=== PATIENT | male | born 1945 | race Caucasian/White ===

== ENCOUNTER 2022-03-07 13:54 | Emergency (ER) | payer BC ==
[~2022-03-07] VITALS: Ht 165.1 cm; Wt 72.6 kg
[2022-03-07 13:59] VITALS: BP_SYST 151
--- NOTE | 2022-03-07 14:00 | NUR ---
Patient triaged and placed in waiting room. VSS and patient appears in no acute distress at this time. Accompanied by FAMILY, awaiting available bed, and MD notified of need for MSE.
--- NOTE | 2022-03-07 14:05 | NUR ---
PT BIB FAMILY REF'D FROM [facility], WORSENING SOB, FATIGUE, LOSS OF APPETITE, CONFUSION, BLE EDEMA. PT HAS BEEN LIVING ALONE AND FAMILY HAS BEEN CONCERNED ABOUT HIM BEING ABLE TO TAKE CARE OF HIMSELF. FAMILY SAYS HE HAS BEEN SLEEPING MORE THAN NORMAL. PT ALSO HAS BILAT EYE REDNESS AND DISCHARGE. PER FAMILY PT HAS NOT BEEN ABLE TO WALK SINCE THURSDAY SINCE WEAKNESS BUT IS AOX3, VSS ON ARRIVAL
--- NOTE | 2022-03-07 15:34 | NUR ---
ER DR. MOYER EXAMINING PT IN TRIAGE
[2022-03-07 16:13] LABS: BASOPHILS # (AUTO) 0.1 K/uL (0.0-0.2); BASOPHILS % (AUTO) 0.9 % (0.0-2.0); EOSINOPHILS # (AUTO) 0.2 K/uL (0.0-0.4); EOSINOPHILS % (AUTO) 1.5 % (0.0-4.0); HEMATOCRIT 34.1 % (36-54); HEMOGLOBIN 10.5 g/dL (14.0-18.0); LYMPHOCYTES # (AUTO) 2.4 K/uL (1.0-5.5); LYMPHOCYTES % (AUTO) 18.5 % (20.5-51.5); MEAN CORPUSCULAR HEMOGLOBIN 23 pg (27-31); MEAN CORPUSCULAR HGB CONC 31 % (32-36); MEAN CORPUSCULAR VOLUME 75 fL (79.0-98.0); MONOCYTES % (AUTO) 8.2 % (1.7-9.3); NEUTROPHILS # (AUTO) 9.1 K/uL (1.8-7.7); NEUTROPHILS % (AUTO) 70.9 % (40.0-70.0); PLATELET COUNT (AUTO) 514 K/uL (130-430); RED BLOOD CELL COUNT(AUTO) 4.52 MIL/uL (4.2-6.2); RED CELL DISTRIBUTION WIDTH 20.5 % (9.0-15.0); WHITE BLOOD COUNT (AUTO) 12.8 K/uL (4.8-10.8)
--- NOTE | 2022-03-07 16:14 | NUR ---
COVID AND FLU SWAB COLLECTED
[2022-03-07 16:24] LABS: ANION GAP 11 (5-15); CALCIUM 9.9 mg/dL (8.4-11.0); CHLORIDE 97 mmol/L (98-107); CREATININE 1.07 mg/dL (0.55-1.30); GLUCOSE 292 mg/dL (70-99); UREA NITROGEN, BLOOD 22 mg/dL (8-21)
[2022-03-07 16:27] LABS: PROTHROMBIN TIME 10.4 SECS (9.5-12.5)
[2022-03-07 16:31] LABS: ALANINE AMINOTRANSFERASE 16 U/L (12-78); ALBUMIN 3.5 g/dL (3.4-4.8); ASPARTATE AMINOTRANSFERASE 16 U/L (10-37); TOTAL BILIRUBIN 0.4 mg/dL (0.0-1.0)
[2022-03-07] MEDS ORDERED: PRED20TA PO (18:39)
[2022-03-07] MEDS ORDERED: ZIT250 PO (18:39)
[2022-03-07 18:59] VITALS: BP_SYST 151
--- NOTE | 2022-03-07 18:59 | NUR ---
Patient given written and verbal discharge instructions and verbalizes understanding. ER MD discussed with patient the results and treatment provided. Patient in stable condition. ID arm band removed. Rx of ZITHROMYCIN given. Patient educated on pain management and to follow up with PMD. Opportunity for questions provided and answered. Medication side effect fact sheet provided.
== END 2022-03-07 18:59 | disposition home or self-care (01) ==
LOC: SED 13:54
DX: J44.1 Chronic obstructive pulmonary disease with (acute) exacerbation (principal); R07.89 Other chest pain; R05.9 Cough, unspecified; R06.00 Dyspnea, unspecified; Z88.8 Allergy status to other drugs, medicaments and biological substances; Z79.899 Other long term (current) drug therapy; Z20.822 Contact with and (suspected) exposure to COVID-19
CPT/HCPCS: 36415; 36600; 71045; 80053; 82550; 82803-TC; 83605; 83880; 84484; 85025; 85610-TC; 85730-TC; 93005; 99285

== ENCOUNTER 2022-04-09 13:26 | Inpatient (IN) | payer BC ==
[~2022-04-09] VITALS: Ht 160 cm; Wt 72.3 kg
[~2022-04-09 13:26] MED LIST: PRED20TA PO; ZIT250 PO
[2022-04-09 13:30] VITALS: BP_SYST 154
[2022-04-09 15:52] LABS: BASOPHILS # (AUTO) 0.1 K/uL (0.0-0.2); EOSINOPHILS # (AUTO) 0.5 K/uL (0.0-0.4); EOSINOPHILS % (AUTO) 3.6 % (0.0-4.0); HEMOGLOBIN 9.8 g/dL (14.0-18.0); LYMPHOCYTES # (AUTO) 2.1 K/uL (1.0-5.5); LYMPHOCYTES % (AUTO) 16.9 % (20.5-51.5); MEAN CORPUSCULAR HEMOGLOBIN 22 pg (27-31); MEAN CORPUSCULAR HGB CONC 31 % (32-36); MEAN CORPUSCULAR VOLUME 71 fL (79.0-98.0); MONOCYTES # (AUTO) 1.2 K/uL (0.0-1.0); NEUTROPHILS # (AUTO) 8.5 K/uL (1.8-7.7); NEUTROPHILS % (AUTO) 68.5 % (40.0-70.0); PLATELET COUNT (AUTO) 434 K/uL (130-430); RED BLOOD CELL COUNT(AUTO) 4.53 MIL/uL (4.2-6.2); RED CELL DISTRIBUTION WIDTH 21.5 % (9.0-15.0); WHITE BLOOD COUNT (AUTO) 12.5 K/uL (4.8-10.8)
[2022-04-09 16:04] LABS: ANION GAP 15 (5-15); CALCIUM 9.7 mg/dL (8.4-11.0); CHLORIDE 98 mmol/L (98-107); CREATININE 1.05 mg/dL (0.55-1.30); GLUCOSE 277 mg/dL (70-99); UREA NITROGEN, BLOOD 16 mg/dL (8-21)
[2022-04-09 16:05] LABS: PROTHROMBIN TIME 10.6 SECS (9.5-12.5)
[2022-04-09 16:20] LABS: ALANINE AMINOTRANSFERASE 8 U/L (12-78); ALBUMIN 3.6 g/dL (3.4-4.8); ASPARTATE AMINOTRANSFERASE 18 U/L (10-37); FREE T4 (FREE THYROXINE) 1.3 ng/dL (0.6-1.6); THYROID STIMULATING HORMONE 2.92 uIu/mL (0.34-4.82); TOTAL BILIRUBIN 0.4 mg/dL (0.0-1.0)
[2022-04-09 16:29] LABS: ACETONE, SERUM NEGATIVE (NEGATIVE)
[2022-04-09] MEDS ORDERED: ASPIRIN 81 MG TAB.CHEW ONE (19:20)
[2022-04-09] MEDS ORDERED: ASPIRIN 81 MG TAB.CHEW PO ONE (19:30)
[2022-04-09] MEDS ORDERED: IPRATROPIUM BROM 0.5 MG/2.5 ML VIAL.NEB (ATROVENT) INH ONE (19:30)
[2022-04-09] MEDS ORDERED: ALBUTEROL SULFATE 0.083% 2.5 MG/3 ML VIAL.NEB INH ONE (19:30)
[2022-04-09] MEDS ORDERED: APIX2.5T PO (19:33)
[2022-04-09] MEDS ORDERED: POLYTRIM EACH EYE (19:33)
[2022-04-09] MEDS ORDERED: INSU300I SQ (19:33)
[2022-04-09] MEDS ORDERED: IPRA4AER INH (19:33)
[2022-04-09] MEDS ORDERED: RESEYE OP (19:33)
[2022-04-09] MEDS ORDERED: INSU100I40 (19:33)
[2022-04-09] MEDS ORDERED: ATRMDI INH (19:33)
[2022-04-09] MEDS ORDERED: TRAZ-250 PO (19:33)
[2022-04-09] MEDS ORDERED: ALBMDI INH (19:33)
[2022-04-09] MEDS ORDERED: XALEYE OP (19:33)
[2022-04-09] MEDS ORDERED: cefTRIAXone 1 GM VIAL ONE (20:43)
[2022-04-09] MEDS ORDERED: cefTRIAXone 1 GM in D5W 50 ML IV ONE (20:45)
[2022-04-09 22:44] VITALS: BP_SYST 160
[2022-04-09] MEDS ORDERED: 0.45% NACL 1,000 ML IV SCH (23:30)
[2022-04-10] MEDS ORDERED: IPRATROPIUM BROM 0.5 MG/2.5 ML VIAL.NEB (ATROVENT) INH ONE ×2 (01:06→20:31)
[2022-04-10] MEDS ORDERED: ALBUTEROL SULFATE 0.083% 2.5 MG/3 ML VIAL.NEB INH ONE ×2 (01:06→20:31)
[2022-04-10 01:15] VITALS: BP_SYST 160
[2022-04-10 06:24] LABS: BASOPHILS # (AUTO) 0.1 K/uL (0.0-0.2); BASOPHILS % (AUTO) 0.8 % (0.0-2.0); EOSINOPHILS # (AUTO) 0.5 K/uL (0.0-0.4); EOSINOPHILS % (AUTO) 5.6 % (0.0-4.0); HEMATOCRIT 28.5 % (36-54); HEMOGLOBIN 8.9 g/dL (14.0-18.0); LYMPHOCYTES % (AUTO) 20.7 % (20.5-51.5); MEAN CORPUSCULAR HEMOGLOBIN 22 pg (27-31); MEAN CORPUSCULAR HGB CONC 31 % (32-36); MEAN CORPUSCULAR VOLUME 70 fL (79.0-98.0); MONOCYTES # (AUTO) 0.8 K/uL (0.0-1.0); MONOCYTES % (AUTO) 8.2 % (1.7-9.3); NEUTROPHILS # (AUTO) 6.2 K/uL (1.8-7.7); NEUTROPHILS % (AUTO) 64.7 % (40.0-70.0); PLATELET COUNT (AUTO) 334 K/uL (130-430); RED BLOOD CELL COUNT(AUTO) 4.08 MIL/uL (4.2-6.2); RED CELL DISTRIBUTION WIDTH 20.9 % (9.0-15.0); WHITE BLOOD COUNT (AUTO) 9.6 K/uL (4.8-10.8)
[2022-04-10] MEDS: INSULIN LISPRO SLIDING SCALE 100 UNITS/ML, 3 ML VIAL (humaLOG) SUBCUT PRN ×4 (06:34→21:22)
[2022-04-10 07:13] LABS: CALCIUM 8.7 mg/dL (8.4-11.0); CHLORIDE 100 mmol/L (98-107); CREATININE 0.84 mg/dL (0.55-1.30); GLUCOSE 202 mg/dL (70-99); UREA NITROGEN, BLOOD 12 mg/dL (8-21)
[2022-04-10 07:28] LABS: ANION GAP 13 (5-15)
[2022-04-10 07:32] VITALS: BP_SYST 152
[2022-04-10] MEDS ORDERED: POTASSIUM CHLORIDE 20 MEQ/PKT PACKET PO ONE (08:00)
[2022-04-10] MEDS: ASPIRIN 81 MG TABLET(ECOTRIN) PO SCH ×2 (08:29→09:10)
[2022-04-10] MEDS ORDERED: POTASSIUM CHLORIDE 20 MEQ in NS 250 ML IV ONE (09:00)
[2022-04-10] MEDS: IPRATROPIUM/ALBUTEROL SULFATE 3 ML AMPUL.NEB (DUONEB) INH PRN ×2 (09:17→20:40)
[2022-04-10 11:28] VITALS: BP_SYST 137
[2022-04-10] MEDS ORDERED: POLYMYXIN B/TRIMETHOPRIM EYE DROPS 10 mL OP SCH (15:00)
[2022-04-10 15:26] VITALS: BP_SYST 145
[2022-04-10 19:00] VITALS: BP_SYST 139
[2022-04-10] MEDS: LATANOPROST 2.5 ML DROPS (XALATAN) OP SCH (21:00)
[2022-04-10] MEDS: traZODone HCL 50 MG TABLET (DESYREL) PO SCH (21:05)
[2022-04-10] MEDS: ATORVASTATIN 20 MG TABLET PO SCH (21:05)
[2022-04-10] MEDS: cycloSPORINE 0.05%, 0.4 ML OPHTHALMIC EMULSION DROPERETTE OP SCH (21:06)
[2022-04-11 00:09] VITALS: BP_SYST 137
[2022-04-11] MEDS: INSULIN LISPRO SLIDING SCALE 100 UNITS/ML, 3 ML VIAL (humaLOG) SUBCUT PRN ×3 (06:52→17:57)
[2022-04-11 08:00] VITALS: BP_SYST 139
[2022-04-11] MEDS ORDERED: IPRATROPIUM BROM 0.5 MG/2.5 ML VIAL.NEB (ATROVENT) INH ONE ×2 (09:12→22:15)
[2022-04-11] MEDS ORDERED: ALBUTEROL SULFATE 0.083% 2.5 MG/3 ML VIAL.NEB INH ONE ×2 (09:12→22:15)
[2022-04-11] MEDS: LATANOPROST 2.5 ML DROPS (XALATAN) OP SCH ×2 (10:20→23:10)
[2022-04-11] MEDS: cycloSPORINE 0.05%, 0.4 ML OPHTHALMIC EMULSION DROPERETTE OP SCH ×2 (10:20→22:52)
[2022-04-11] MEDS: APIXABAN 2.5 MG TABLET PO SCH (10:21)
[2022-04-11 13:00] VITALS: BP_SYST 138
[2022-04-11 14:37] LABS: BASOPHILS # (AUTO) 0.1 K/uL (0.0-0.2); BASOPHILS % (AUTO) 1.4 % (0.0-2.0); EOSINOPHILS # (AUTO) 0.5 K/uL (0.0-0.4); EOSINOPHILS % (AUTO) 4.6 % (0.0-4.0); HEMOGLOBIN 9.4 g/dL (14.0-18.0); LYMPHOCYTES % (AUTO) 20.1 % (20.5-51.5); MEAN CORPUSCULAR HEMOGLOBIN 22 pg (27-31); MEAN CORPUSCULAR HGB CONC 33 % (32-36); MEAN CORPUSCULAR VOLUME 69 fL (79.0-98.0); MONOCYTES # (AUTO) 0.9 K/uL (0.0-1.0); MONOCYTES % (AUTO) 9.3 % (1.7-9.3); NEUTROPHILS # (AUTO) 6.4 K/uL (1.8-7.7); NEUTROPHILS % (AUTO) 64.6 % (40.0-70.0); PLATELET COUNT (AUTO) 341 K/uL (130-430); RED BLOOD CELL COUNT(AUTO) 4.24 MIL/uL (4.2-6.2); RED CELL DISTRIBUTION WIDTH 20.9 % (9.0-15.0); WHITE BLOOD COUNT (AUTO) 9.9 K/uL (4.8-10.8)
[2022-04-11 15:26] LABS: ANION GAP 13 (5-15); CALCIUM 8.9 mg/dL (8.4-11.0); CHLORIDE 102 mmol/L (98-107); CREATININE 0.78 mg/dL (0.55-1.30); GLUCOSE 192 mg/dL (70-99); UREA NITROGEN, BLOOD 9 mg/dL (8-21)
[2022-04-11] MEDS ORDERED: POTASSIUM CHLORIDE 20 MEQ TAB.PRT.SR PO ONE (15:45)
[2022-04-11] MEDS ORDERED: POTASSIUM CHLORIDE 20 MEQ in NS 250 ML IV ONE (15:45)
[2022-04-11] MEDS ORDERED: FUROSEMIDE 20 MG/2 ML VIAL IVP ONE (16:00)
[2022-04-11] MEDS ORDERED: METOPROLOL SUCCINATE 25 MG TAB.SR.24H (TOPROL XL) PO ONE (16:15)
[2022-04-11 17:19] VITALS: BP_SYST 125
[2022-04-11 21:00] VITALS: BP_SYST 135
[2022-04-11] MEDS: traZODone HCL 50 MG TABLET (DESYREL) PO SCH (22:18)
[2022-04-11] MEDS: ATORVASTATIN 20 MG TABLET PO SCH (22:18)
[2022-04-11] MEDS: IPRATROPIUM/ALBUTEROL SULFATE 3 ML AMPUL.NEB (DUONEB) INH PRN (23:11)
[2022-04-12 02:30] VITALS: BP_SYST 135
[2022-04-12 04:29] VITALS: BP_SYST 146
[2022-04-12] MEDS: INSULIN LISPRO SLIDING SCALE 100 UNITS/ML, 3 ML VIAL (humaLOG) SUBCUT PRN ×4 (07:04→21:06)
[2022-04-12 08:37] VITALS: BP_SYST 155
[2022-04-12 08:52] LABS: BASOPHILS # (AUTO) 0.1 K/uL (0.0-0.2); BASOPHILS % (AUTO) 1.1 % (0.0-2.0); EOSINOPHILS # (AUTO) 0.5 K/uL (0.0-0.4); EOSINOPHILS % (AUTO) 4.8 % (0.0-4.0); HEMOGLOBIN 9.8 g/dL (14.0-18.0); LYMPHOCYTES # (AUTO) 1.8 K/uL (1.0-5.5); LYMPHOCYTES % (AUTO) 16.5 % (20.5-51.5); MEAN CORPUSCULAR HEMOGLOBIN 22 pg (27-31); MEAN CORPUSCULAR HGB CONC 31 % (32-36); MONOCYTES # (AUTO) 1.2 K/uL (0.0-1.0); MONOCYTES % (AUTO) 10.5 % (1.7-9.3); NEUTROPHILS # (AUTO) 7.5 K/uL (1.8-7.7); NEUTROPHILS % (AUTO) 67.1 % (40.0-70.0); PLATELET COUNT (AUTO) 359 K/uL (130-430); RED BLOOD CELL COUNT(AUTO) 4.45 MIL/uL (4.2-6.2); RED CELL DISTRIBUTION WIDTH 21.3 % (9.0-15.0); WHITE BLOOD COUNT (AUTO) 11.1 K/uL (4.8-10.8)
[2022-04-12 08:56] LABS: MEAN CORPUSCULAR VOLUME 72 fL (79.0-98.0)
[2022-04-12] MEDS: LATANOPROST 2.5 ML DROPS (XALATAN) OP SCH ×2 (09:00→21:00)
[2022-04-12] MEDS: APIXABAN 2.5 MG TABLET PO SCH (09:28)
[2022-04-12] MEDS: METOPROLOL SUCCINATE 25 MG TAB.SR.24H (TOPROL XL) PO SCH (09:29)
[2022-04-12] MEDS: cycloSPORINE 0.05%, 0.4 ML OPHTHALMIC EMULSION DROPERETTE OP SCH ×2 (09:30→21:00)
[2022-04-12 09:36] LABS: ANION GAP 11 (5-15); CALCIUM 9.3 mg/dL (8.4-11.0); CHLORIDE 104 mmol/L (98-107); CREATININE 0.81 mg/dL (0.55-1.30); GLUCOSE 245 mg/dL (70-99); UREA NITROGEN, BLOOD 11 mg/dL (8-21)
[2022-04-12 11:20] VITALS: BP_SYST 149
[2022-04-12] MEDS ORDERED: cefTRIAXone 1 GM in D5W 50 ML IV SCH (13:00)
[2022-04-12 13:25] LABS: TOTAL IRON BIND. CAPACITY 363 ug/dL (250-450)
[2022-04-12] MEDS ORDERED: ALBUTEROL SULFATE 0.083% 2.5 MG/3 ML VIAL.NEB INH ONE ×2 (13:51→20:25)
[2022-04-12] MEDS ORDERED: IPRATROPIUM BROM 0.5 MG/2.5 ML VIAL.NEB (ATROVENT) INH ONE ×2 (13:51→20:25)
[2022-04-12 14:59] LABS: BILIRUBIN,URINE 1+ (NEGATIVE); BLOOD, URINE NEGATIVE (NEGATIVE); CLARITY/URINE CLEAR (CLEAR); COLOR,URINE YELLOW (YELLOW); GLUCOSE,URINE 1+ (NEGATIVE); KETONES,URINE 1+ (NEGATIVE); LEUKOCYTE ESTERASE ,URINE NEGATIVE (NEGATIVE); NITRITE, URINE NEGATIVE (NEGATIVE); PH,URINE 6.5 (5.0-8.0); PROTEIN URINE 1+ (NEGATIVE); UROBILINOGEN,URINE 0.2 (0.2-1.0)
[2022-04-12 15:18] LABS: BACTERIA,URINE FEW /HPF (None Seen); RBC,URINE NONE SEEN /HPF (0-3); WBC,URINE 0-3 /HPF (0-3)
[2022-04-12 15:19] LABS: MUCUS,URINE None Seen /LPF (None Seen)
[2022-04-12 15:40] VITALS: BP_SYST 145
[2022-04-12 19:40] VITALS: BP_SYST 133
[2022-04-12] MEDS: IPRATROPIUM/ALBUTEROL SULFATE 3 ML AMPUL.NEB (DUONEB) INH PRN (20:26)
[2022-04-12] MEDS: FUROSEMIDE 20 MG/2 ML VIAL IVP SCH (21:00)
[2022-04-12] MEDS: traZODone HCL 50 MG TABLET (DESYREL) PO SCH (21:00)
[2022-04-12] MEDS: ATORVASTATIN 20 MG TABLET PO SCH (21:00)
[2022-04-13 00:13] VITALS: BP_SYST 131
[2022-04-13] MEDS: INSULIN LISPRO SLIDING SCALE 100 UNITS/ML, 3 ML VIAL (humaLOG) SUBCUT PRN (05:56)
[2022-04-13] MEDS ORDERED: IPRATROPIUM BROM 0.5 MG/2.5 ML VIAL.NEB (ATROVENT) INH ONE (07:14)
[2022-04-13] MEDS ORDERED: ALBUTEROL SULFATE 0.083% 2.5 MG/3 ML VIAL.NEB INH ONE (07:14)
[2022-04-13 08:00] VITALS: BP_SYST 130
[2022-04-13] MEDS: LATANOPROST 2.5 ML DROPS (XALATAN) OP SCH (09:00)
[2022-04-13] MEDS: FUROSEMIDE 20 MG/2 ML VIAL IVP SCH (09:00)
[2022-04-13] MEDS ORDERED: TORS20TA23 PO ×2 (09:50→10:10)
[2022-04-13] MEDS ORDERED: LEVO750T64 PO (09:56)
[2022-04-13] MEDS ORDERED: PRED5TAB PO (10:00)
[2022-04-13] MEDS: METOPROLOL SUCCINATE 25 MG TAB.SR.24H (TOPROL XL) PO SCH (10:12)
[2022-04-13] MEDS: cycloSPORINE 0.05%, 0.4 ML OPHTHALMIC EMULSION DROPERETTE OP SCH (10:12)
[2022-04-13] MEDS: APIXABAN 2.5 MG TABLET PO SCH (10:13)
[2022-04-13 11:02] VITALS: BP_SYST 130
== END 2022-04-13 11:45 | disposition home or self-care (01) | DRG 193 ==
LOC: SED 13:26 → STU 19:05 → SMU 04-13 09:55
PROVIDERS: ADMIT Internal Medicine; ATTEND Internal Medicine
DX: J18.9 Pneumonia, unspecified organism (principal); I50.33 Acute on chronic diastolic (congestive) heart failure; J81.0 Acute pulmonary edema; J44.1 Chronic obstructive pulmonary disease with (acute) exacerbation; I11.0 Hypertensive heart disease with heart failure; E87.6 Hypokalemia; R06.03 Acute respiratory distress; E78.5 Hyperlipidemia, unspecified; I25.10 Atherosclerotic heart disease of native coronary artery without angina pectoris; F32.A Depression, unspecified; I48.91 Unspecified atrial fibrillation; Z20.822 Contact with and (suspected) exposure to COVID-19; Z88.8 Allergy status to other drugs, medicaments and biological substances; Z79.899 Other long term (current) drug therapy; Z79.4 Long term (current) use of insulin; Z79.01 Long term (current) use of anticoagulants
CPT/HCPCS: 36415; 70450-TC; 71045; 76376; 80048; 80053; 81000; 82009; 82550; 83037; 83540; 83550; 83605; 83735; 83880; 84439; 84443; 84484; 85025; 85610-TC; 85730-TC; 87040; 87081; 93005; 93306; 93880; 94640; 94760; 99285; G0378; J0696; J1940; J3480; J7050; J7060; J7613